=== PATIENT | female | born 2000 | race Caucasian/White ===

== ENCOUNTER 2021-07-14 20:27 | Emergency (ER) | payer OTHER ==
[2021-07-14 20:38] VITALS: RESP 20
--- NOTE | 2021-07-14 21:17 | XR ---
EXAMINATION TYPE: XR chest 1V portable DATE OF EXAM: 07/14/2021 COMPARISON: NONE HISTORY: Pain TECHNIQUE: Single view FINDINGS: Heart and mediastinum are normal. Lungs are clear. Diaphragm is normal. Bony thorax appears normal. Pulmonary vascularity is normal. IMPRESSION: Normal chest.
--- NOTE | 2021-07-14 23:14 | ED ---
Chest Pain HPI - General Chief Complaint: Chest Pain Stated Complaint: R side rib pain Time Seen by Provider: 07/14/21 23:03 Source: patient Mode of arrival: ambulatory Limitations: no limitations - History of Present Illness Initial Comments: This 20-year-old female presents with mother with the complaint of some pain to her right lower chest x 2-3 days. She states that while occur with certain movements and with deep inspiration. She denies any known trauma or overuse. She denies any previous similar incidents. She denies any cough, fever, or shortness of breath. She denies any recent infections. There is no leg pain or swelling. She did try some nonsteroidal anti-inflammatory medicine earlier today without relief. There is no abdominal pain. She's been eating well and drinking well. No nausea or vomiting. No other complaints or modifying factors. - Related Data Allergies Allergy/AdvReac Type Severity Reaction Status Date / Time No Known Allergies Allergy Verified 07/14/21 20:38 Review of Systems ROS Statement: Those systems with pertinent positive or pertinent negative responses have been documented in the HPI. ROS Other: All systems not noted in ROS Statement are negative. Past Medical History Past Medical History: No Reported History History of Any Multi-Drug Resistant Organisms: None Reported Past Surgical History: No Surgical Hx Reported Past Psychological History: No Psychological Hx Reported Smoking Status: Never smoker Past Alcohol Use History: Occasional Past Drug Use History: None Reported General Exam Limitations: no limitations General appearance: alert, in no apparent distress Respiratory exam: Present: normal lung sounds bilaterally, respiratory distress, chest wall tenderness, other (There is some mild tenderness noted to the inferior right ribs/chest wall.). Absent: wheezes, rales, rhonchi Cardiovascular Exam: Present: regular rate, normal rhythm GI/Abdominal exam: Present: soft. Absent: distended, tenderness, guarding, rebound, rigid Extremities exam: Present: normal inspection. Absent: tenderness, pedal edema, joint swelling, calf tenderness Neurological exam: Present: oriented X3 Psychiatric exam: Present: normal affect, normal mood Course Vital Signs 07/14/21 20:34 Temperature 98.5 F Pulse Rate 82 Respiratory 20 Rate Blood Pressure 139/92 O2 Sat by Pulse 99 Oximetry Chest Pain MDM - MDM The patient was seen and examined. An x-ray was taken of the chest. This does not show any evidence of pneumothorax or pneumonia. It is felt as though her pain is reproducible and that she likely has mussing skeletal chest wall pain. Motrin and/or Tylenol are recommended. Return parameters are discussed. Close follow-up with primary care recommended. Disposition Clinical Impression: Chest wall pain Disposition: HOME SELF-CARE Condition: Good Instructions (If sedation given, give patient instructions): Chest Pain (ED) Additional Instructions: Please use ibuprofen or Aleve as needed for pain. If this does not help you also may take Tylenol. Is patient prescribed a controlled substance at d/c from ED?: No Referrals: Nonstaff,Physician [Primary Care Provider] - 1-2 days Time of Disposition: 23:13
[2021-07-14 23:28] VITALS: BP 127/77; PULSE 77; TEMP 98
== END 2021-07-14 23:21 | disposition home or self-care (01) ==
LOC: EC 20:27
DX: R07.89 Other chest pain (principal)
CPT/HCPCS: 71045